=== PATIENT | male | born 1945 | race Caucasian/White ===

== ENCOUNTER → 2016-08-01 | Day surgery (SDC) | payer OTHER, MEDICARE ==
[~2016-08-01] VITALS: Ht 172.7 cm; Wt 86.2 kg
[~2016-08-01] MED LIST: AMBIEN CR12.5 M1 PO; ANORO ELLIPTA1 EACH INH; ASPIRIN EC81 M1 PO; CLONAZEPAM0.5 M2 PO; COZAAR100 M1 PO; CYMBALTA60 M1 PO; FINASTERIDE5 M1 PO; METOPROLOL SUCC50 M2 PO; NORTRIPTYLINE H75 M2 PO; PRAVACHOL20 M2 PO; VITAMIN B-121000 MC3 PO
--- NOTE | 2016-08-01 09:23 | Operative Report ---
Operative/Inv Procedure Report Surgery Date: 08/01/16 Name of Procedure: Left shoulder arthroscopy, subacromial decompression, rotator cuff repair, extensive debridement Pre-Operative Diagnosis: Left shoulder rotator cuff tear Post-Operative Diagnosis: Left shoulder rotator cuff tear Estimated Blood Loss: vahe Surgeon/Fabric Worker Foreman: MANDA DOZIER,FABRICIO LO Anesthesia: general endotracheal tube, block Drains: Hemovac Complications: None Condition: Stable to PACU Operative Indication: This is a 70-year-old male who injured his left shoulder several months ago. MRI showed a rotator cuff tear. He has failed conservative care. Risks and benefits of the procedure were discussed with the patient at length. Risks include but are not limited to nerve damage, muscle damage, infection, blood loss, blood clots, pulmonary embolus, and even . The patient agreed to the above risks and elected to proceed with surgery. Operative/Procedure Note Note: The patient was taken to the operating room and placed in the lateral decubitus position with the operative side up after anesthesia was induced. The upper extremity was prepped and draped in the normal sterile fashion. A timeout was performed prior to incision. The site marking was visualized prior to incision. IV antibiotics were given prior to incision. After the upper extremity was prepped and draped a spinal needle was used to insufflate the shoulder joint with saline. An 11 blade was used to incise the skin for the posterior portal placement. The cannula was then placed. The camera was inserted. An anterior portal was established just proximal and lateral to the coracoid with a spinal needle and an 11 blade. The diagnostic arthroscopy was then performed that showed the above findings. The shaver was used to debride the biceps stump back to a stable base. The shaver was also used to debride the leading edge of the subscapularis tendon. Degenerative tearing of the superior and anterior labrum was also debrided with the shaver. The undersurface of the supraspinatus tendon was debrided with a shaver. A wand was used to coagulate any bleeding vessels. Next the subacromial space was entered through the posterior portal. A lateral portal was established with a spinal needle and an 11 blade. A blunt probe was inserted through the lateral portal. Next the shaver was inserted and a subacromial bursectomy was performed. Any bleeding vessels were identified and cauterized. The shaver was used to debride any bursal tissue on the undersurface of the acromion and surrounding the humeral head. The coracoacromial ligament was taken down with a wand. Care was taken to protect the rotator cuff tissue and only take bursal tissue. A wand was then used to further take down the soft tissue on the undersurface of the acromion. A bur was then inserted and the acromioplasty was then begun starting at the anterolateral edge of the acromion. This was extended down to the level of the acromioclavicular joint. This was then tapered further posteriorly. An 8 mm PassPort cannula was placed through the lateral portal site. A 6 mm PassPort cannula was placed through the anterior portal. An accessory portal was made just off of the lateral border the acromion with a spinal needle and an 11 blade. An 8 mm PassPort cannula was placed through this. The bur was used to prepare the rotator cuff footprint back to a healthy bed of bleeding bone for later rotator cuff repair. Any bursal adhesions superior to the rotator cuff were taken everardo with a shaver. A tap was used and a 5.5 mm helicoil anchor was placed just lateral to the articular surface in the rotator cuff footprint. An expressew needle was then used to shuttle the sutures from front to back. The medial row was tied down with a locking knot and several half hitches. The sutures were then crisscrossed over the top and fixed with 2 lateral row multifix anchors. An anchor was placed posterior to the bicipital groove. A second anchor was placed further posterior. This afforded excellent compression of the rotator cuff. The excess suture was then cut. A 1/8 inch Hemovac drain was placed through the posterior portal. All instruments were removed and the shoulder was copiously irrigated. The portal sites were closed with 3-0 nylon suture in a simple interrupted fashion. A dry sterile dressing was placed. A sling was applied. The patient was transferred to PACU in stable condition. Findings: Full-thickness tearing of the supraspinatus tendon. Partial undersurface tearing of the infraspinatus. Subscapularis with partial tearing of the upper rolled border. Completely torn biceps tendon with an unstable root still present. Degenerative tearing of the anterior superior labrum. Posterior labrum intact. Grade 2 chondral changes of the humeral head superiorly. Grade 1 chondral changes of the glenoid. No loose bodies noted. Subacromial hook present.
== END ==
LOC: STS 07-31 23:07
DX: M75.102 Unspecified rotator cuff tear or rupture of left shoulder, not specified as traumatic (principal); M19.90 Unspecified osteoarthritis, unspecified site; I10 Essential (primary) hypertension; Z87.891 Personal history of nicotine dependence; M67.922 Unspecified disorder of synovium and tendon, left upper arm
CPT/HCPCS: J0171; J0690; J2250; J2795

== ENCOUNTER → 2017-12-12 | Day surgery (SDC) | payer OTHER, MEDICARE ==
[~2017-12-12] VITALS: Ht 177.8 cm; Wt 85.7 kg
[~2017-12-12] MED LIST changes: +PROAIR HFA8.5 GM INH; +TOPROL XL100 M1 PO
== END ==
LOC: STS 02:40
DX: K64.8 Other hemorrhoids (principal); R04.0 Epistaxis; Z53.09 Procedure and treatment not carried out because of other contraindication; I10 Essential (primary) hypertension; J44.9 Chronic obstructive pulmonary disease, unspecified; Z87.891 Personal history of nicotine dependence; Z79.82 Long term (current) use of aspirin
CPT/HCPCS: 93005; 93010; J0131; J2250

== ENCOUNTER → 2017-12-19 | Day surgery (SDC) | payer OTHER, MEDICARE ==
--- NOTE | 2017-12-16 09:44 | History & Physical Pre-Op ---
General Information and HPI History of Present Illness: patient presents for evaluation of bleeding hemorrhoid. He notes intermittent bleeding after BM for years. colonoscopy two months ago normal except hemorrhoid. last week severe nonpainful bleeding noted that took three days to cease. Now stopped. asymptomatic. denies constipation. Allergies/Medications Allergies: Coded Allergies: iodine (Severe, SWELLING 07/26/16) shellfish derived (THROAT CLOSES 07/26/16) shrimp (THROAT CLOSES 07/26/16) Home Med list Albuterol Sulfate (Proair Hfa) 90 MCG HFA.AER.AD 2 PUF INH QPM RESP. ( Reported) Aspirin (Ecotrin*) 81 MG TABLET.DR 1 TAB PO DAILY HEART/BLOOD (Reported) Clonazepam 0.5 MG TABLET 1 TAB PO PRN ANXIETY (Reported) Duloxetine HCl (Cymbalta) 60 MG CAPSULE.DR 1 CAP PO DAILY NEUROPATHY ( Reported) Finasteride 5 MG TABLET 1 TAB PO DAILY PROSTATE (Reported) Losartan (Cozaar) 100 MG TABLET 1 TAB PO DAILY BP (Reported) Metoprolol Succ XL (Toprol XL) 100 MG TAB.ER.24H 1 TAB PO DAILY HEART/BP ( Reported) Nortriptyline HCl 75 MG CAPSULE 1 CAP PO QHS PTSD (Reported) Pravastatin Sodium (Pravachol) 20 MG TABLET 1 TAB PO QPM CHOLESTEROL ( Reported) Past History Medical History Neurological: TIA Cardiovascular: hypertension, hyperlipidemia Respiratory: COPD, obstructive sleep apnea Gastrointestinal: GERD Psychiatric: anxiety, depression History of MRSA: No History of VRE: No History of CDIFF: No Pneumonia Vaccine: 06/02/10 Surgical History Pertinent Surgical History: hernia repair-inguinal, rotator cuff repair Past Family/Social History Psychosocial History Smoking Status: Former Smoker ETOH Use: denies use Illicit Drug Use: denies illicit drug use Review of Systems Review of Systems: Patient reports difficulty urinating but reports no incontinence, no hematuria, and no increased frequency. He reports no fatigue, no fever, no night sweats, no significant weight gain, no significant weight loss, and no exercise intolerance. He reports no swollen glands and no neck stiffness. He reports no cough, no wheezing, no shortness of breath, and no coughing up blood. He reports no chest pain, no arm pain on exertion, no shortness of breath when walking, no shortness of breath when lying down, no palpitations, and no known heart murmur. He reports normal appetite, no abdominal pain, no vomiting, no vomiting blood, no bloating, no diarrhea, no belching, no constipation, no regurgitation, and no rectal bleeding. He reports no muscle aches, no muscle weakness, no arthralgias/ joint pain, and no back pain. Exam & Diagnostic Data Last 24 Hrs of Vital Signs/I&O Patient is a 71-year-old male. Constitutional: General Appearance: healthy-appearing, well-nourished, and well- developed. Level of Distress: no acute distress. Ambulation: ambulating normally. Head: Head: normocephalic and atraumatic. Cardiovascular: Heart Auscultation: regular rate and rhythm. Lungs: Respiratory effort: no dyspnea. Auscultation: good air movement and no wheezing. Back: Thoracolumbar Appearance: normal curvature. Abdomen: Inspection and Palpation: no tenderness, guarding, masses, rebound tenderness, or CVA tenderness and soft and non-distended. Bowel Sounds: normal. Liver: non-tender and no hepatomegaly. Spleen: non-tender and no splenomegaly. Hernia: none palpable. Rectal: Anus, Perineum, Rectum: no fissures or masses and normal tone, stool heme negative, and hemorrhoids. Skin: Inspection and palpation: no rash, lesions, ulcer, induration, nodules, jaundice, or abnormal nevi and good turgor. Musculoskeletal:: Extremities: no cyanosis, edema, varicosities, or palpable cord. Motor Strength and Tone: normal tone and motor strength. Joints, Bones, and Muscles: no contractures, malalignment, tenderness, or bony abnormalities and normal movement of all extremities. Procedure Documentation Anoscopy: Lubricated regular anoscope was gently inserted into the anal orifice and the obturator was removed. The anus and distal rectum were examined. This procedure was repeated to examine all four quadrants of the anus and distal rectum. The patient tolerated the procedure well. There were no immediate complications. Solitary internal hemorrhoid right posterior without active bleeding. Assessment/Plan Assessment/Plan: 1. Bleeding internal hemorrhoids - Recommend single collumn hemorrhoidectomy. Patient had aborted operation last week due to severe nasal hemorrhage in prone position. Will require endotracheal intubation for airway control. plan two collumn hemorrhoidectomy. K64.8: Other hemorrhoids Discussion Notes Discussed risks of hemorrhoidectomy including bleeding requiring reoperation and infection. Small risk of anal stenosis and recurrent disease. As Ranked By This Provider Problem List: 1. Hemorrhoids, internal, with bleeding
[~2017-12-19] VITALS: Ht 177.8 cm; Wt 85.7 kg
[~2017-12-19] MED LIST changes: +FLOMAX0.4 M1 PO
--- NOTE | 2017-12-19 10:14 | Operative Report ---
Operative/Inv Procedure Report Surgery Date: 12/19/17 Name of Procedure: 2 column hemorrhoidectomy Pre-Operative Diagnosis: Bleeding internal and external hemorrhoids Post-Operative Diagnosis: Same Estimated Blood Loss: less than 50ml Surgeon/Ruby Engineer: Patel DOZIER,Lorenzo Marie Anesthesia: general endotracheal tube Specimens: Hemorrhoids Operative Indication: Patient returns 1 week following aborted hemorrhoidectomy due to nasal bleeding during conscious sedation in the prone position. He has long-standing internal/ external hemorrhoids which cause bleeding. Presents for resection under general endotracheal anesthesia. Operative/Procedure Note Note: After informed consent patient brought to the operating room and laid supine. General anesthesia was obtained he was then flipped into the prone position. Perianal nerve block was created with a cocktail local anesthesia. Digital rectal examination was unrevealing. Rigid proctoscopy showed 2 internal/ external hemorrhoid columns right and left. Right side was larger and this will began. The external component was able to local anesthesia a wedge-shaped incision was made over the skin and subcutis tissues dissected with cautery. We dissected down to the sphincter muscles and then freed up the internal sphincter off of the hemorrhoid column. We then carried dissection down to the proximal extent. The mucosa was then divided with cautery and hemorrhoid suture ligated with 3-0 Vicryl. Specimen passed off the field. The mucosa was closed with a running 3-0 chromic gut in a locking fashion. External component was left open for drainage. Direct pressure was applied and hemostasis was adequate. We then turned attention to the left side. In a similar fashion a wedge-shaped skin incision was made after local anesthesia instilled. There is a very large external component was resected en bloc with the internal. In similar fashion the proximal column was suture ligated with 3-0 Vicryl. In the mucosa closed with 3-0 chromic gut. Hemostasis achieved with direct pressure. Bacitracin ointment was applied and sterile dressings applied. Sponge and needle counts are correct. CC: Areli DOZIER,Crispin
== END ==
LOC: STS 01:15
DX: K64.8 Other hemorrhoids (principal); I10 Essential (primary) hypertension; J44.9 Chronic obstructive pulmonary disease, unspecified; Z87.891 Personal history of nicotine dependence; G47.33 Obstructive sleep apnea (adult) (pediatric); K21.9 Gastro-esophageal reflux disease without esophagitis
CPT/HCPCS: J1885; J2250; J3490

== ENCOUNTER 2017-12-21 18:53 | Emergency (ER) | payer OTHER, MEDICARE ==
[~2017-12-21] VITALS: Ht 172.7 cm; Wt 86.2 kg
[~2017-12-21 18:53] MED LIST changes: -FLOMAX0.4 M1 PO
--- NOTE | 2017-12-21 19:19 | ED GI/GU/ABDOMINAL COMPLAINT ---
History of Present Illness General Chief Complaint: General Adult Stated Complaint: SENT BY DR VIDAL FOR TROUBLE URINATING Source: patient Exam Limitations: no limitations Vital Signs & Intake/Output Vital Signs & Intake/Output Vital Signs Date Time Temp Pulse Resp B/P B/P Pulse O2 O2 Flow FiO2 Mean Ox Delivery Rate 12/21 2020 97.6 89 18 170/98 95 Room Air 12/21 2010 98 Room Air 12/21 1858 97.7 95 20 201/110 93 ED Intake and Output 12/22 0000 12/21 1200 Intake Total Output Total Balance Patient 190 lb Weight Weight Reported by Patient Measurement Method Allergies Coded Allergies: iodine (Severe, SWELLING 12/18/17) diphenhydramine (From BENADRYL) (feels hyper 12/18/17) shellfish derived (THROAT CLOSES 12/18/17) shrimp (THROAT CLOSES 12/18/17) Reconcile Medications Albuterol Sulfate (Proair Hfa) 90 MCG HFA.AER.AD 2 PUF INH QPM RESP. ( Reported) Aspirin (Ecotrin*) 81 MG TABLET.DR 1 TAB PO DAILY HEART/BLOOD (Reported) Clonazepam 0.5 MG TABLET 1 TAB PO PRN ANXIETY (Reported) Duloxetine HCl (Cymbalta) 60 MG CAPSULE.DR 1 CAP PO DAILY NEUROPATHY ( Reported) Finasteride 5 MG TABLET 1 TAB PO DAILY PROSTATE (Reported) Losartan (Cozaar) 100 MG TABLET 1 TAB PO DAILY BP (Reported) Metoprolol Succ XL (Toprol XL) 100 MG TAB.ER.24H 1 TAB PO DAILY HEART/BP ( Reported) Nortriptyline HCl 75 MG CAPSULE 1 CAP PO QHS PTSD (Reported) Pravastatin Sodium (Pravachol) 20 MG TABLET 1 TAB PO QPM CHOLESTEROL ( Reported) Tamsulosin HCl (Flomax) 0.4 MG CAP.ER.24H 1 CAP PO DAILY URINARY RETENTION Triage Note: PT TO ER C/C UNABLE TO VOID X 4 HRS. PT IS S/P HEMMORHOIDECTOMY 12/19, BELIEVES THIS MAY BE CAUSING ISSUE. PAIN 03/11 Triage Nurses Notes Reviewed? yes Onset: Gradual Duration: hour(s): Timing: recent history Location: suprapubic Radiation: no radiation Activities at Onset: post-op Prior Abdominal Problems: none Modifying Factors: Worsens With: other (difficulty urinating). Associated Symptoms: difficulty urinating HPI: 72 yo gentleman s/p hemmoroidectomy 2 days ago, presents with urinary retention x 4-5 hours. He notes suprapubic pressure, but no fevers, chills, rectal bleeding. He is otherwise well. Past History Travel History Traveled to [place] past 21 day No Medical History Any Pertinent Medical History? see below for history Neurological: TIA Cardiovascular: hypertension, hyperlipidemia Respiratory: COPD, obstructive sleep apnea Gastrointestinal: GERD Psychiatric: anxiety, depression History of MRSA: No History of VRE: No History of CDIFF: No Pneumonia Vaccine: 06/02/10 Surgical History Surgical History: hernia repair-inguinal, rotator cuff repair Psychosocial History Who do you live with Spouse What is your primary language Mosotho Tobacco Use: Quit >30 days ago Family History Hx Contributory? No Review of Systems Review of Systems Constitutional: Reports: no symptoms. EENTM: Reports: no symptoms. Respiratory: Reports: no symptoms. Cardiovascular: Reports: no symptoms. GI: Reports: no symptoms. Genitourinary: Reports: no symptoms. Musculoskeletal: Reports: no symptoms. Skin: Reports: no symptoms. Neurological/Psychological: Reports: no symptoms. Hematologic/Endocrine: Reports: no symptoms. Immunologic/Allergic: Reports: no symptoms. All Other Systems: Reviewed and Negative Physical Exam Physical Exam General Appearance: well developed/nourished, mild distress Head: atraumatic, normal appearance Eyes: Bilateral: normal appearance. Ears, Nose, Throat, Mouth: hearing grossly normal, moist mucous membrane Neck: normal inspection Respiratory: no respiratory distress Gastrointestinal: mild suprapubic pressure to palpation. Back: normal inspection Extremities: normal range of motion Neurologic/Psych: no motor/sensory deficits, awake, alert, oriented x 3 Core Measures ACS in differential dx? No Sepsis Present: No Sepsis Focused Exam Completed? No Progress Differential Diagnosis: urinary retention Plan of Care: Orders Procedure Date/time Status Munson, Insertion/Removal/Asses 12/21 1917 Active CULTURE,URINE 12/21 1917 Active URINALYSIS 12/21 1917 Complete Laboratory Tests 12/21/171936: Urine Color YEL, Urine Clarity CLEAR, Urine pH 6.5, Ur Specific [place] 1.015, Urine Protein NEG, Urine Ketones TRACE H, Urine Nitrite NEG, Urine Bilirubin NEG, Urine Urobilinogen 0.2, Ur Leukocyte Esterase NEG, Ur Microscopic EXAM NOT REQUIRED, Urine Hemoglobin NEG, Urine Glucose NEG Microbiology 12/21 1936 URINE ROUT: Urine Culture - RECD Initial ED EKG: none Departure Departure Disposition: HOME OR SELF CARE Condition: Stable Clinical Impression Primary Impression: Postoperative urinary retention Referrals: Crispin Singleton MD (PCP/Family) Departure Forms: Customer Survey General Discharge Information Prescriptions: Current Visit Scripts Tamsulosin HCl (Flomax) 1 CAP PO DAILY #10 CAP Comments munson placed.... pt drained copious amounts of urine.... feels well... no sign of uti... pt safe for discharge. close follow up advised. pt referred to urology and given flomax.
[2017-12-21] MEDS ORDERED: FLOMAX0.4 M1 PO (20:07)
[2017-12-21 20:21] VITALS: BP 170/98
== END 2017-12-21 20:21 ==
LOC: ERH 18:53
DX: R33.8 Other retention of urine (principal)
CPT/HCPCS: 81003; 87086